=== PATIENT | female | born 1990 | race Caucasian/White ===

== ENCOUNTER → 2016-12-07 11:39 | Day surgery (SDC) | payer BC, OTHER ==
[~2016-12-07 11:39] MED LIST: Acetaminophen IV 1GM/100ML * 100 ML IVPB ONE; Acetaminophen IV 1GM/100ML * 100 ML ONE; Buffered Lidocaine 1% SYR 3ML* 3 ML/SYR SYRINGE INTRADERM ONE; Bupivacaine 0.25% EPI 200,000* 30 ML SDV ONE; Dexamethasone IV* 4 MG/ML 1 ML (4 MG) ONE; DiMENhydriNATE IV* 50 MG/ML VIAL IV PUSH PRN; DiMENhydriNATE IV* 50 MG/ML VIAL ONE; Famotidine IV* 10 MG/ML 2 ML (20 mg) IV ONE; Famotidine IV* 10 MG/ML 2 ML (20 mg) ONE; HYDROmorphone INJ* 1 MG/ML CARPUJECT SYRINGE IV PRN; HYDROmorphone INJ* 1 MG/ML CARPUJECT SYRINGE ONE; Heparin VIAL(*) 5000 UNITS/ML VIAL (FIVE THOUSAND) ONE; Ketorolac INJ* 30 MG/ML 1 ML VIAL ONE; Lidocaine 2% PF * 5 ML VIAL ONE; Midazolam* 1 MG/ML 5 ML VIAL (5 MG) ONE; Ondansetron INJ* 2 MG/ML VIAL ONE; Propofol* 10 MG/ML 20 ML BTL IV PUSH ONE; Rocuronium* 10 MG/ML VIAL ONE; Scopolamine 1.5 mg* PATCH ONE; Succinylcholine* 20 MG/ML 10 ML VIAL ONE; ceFAZolin 2 GM PREMIX (*) 2 GM/50 ML BAG IVPB ONE; fentaNYL* 50 MCG/ML 2 ML VIAL (100 MCG VIAL) ONE; oxyCODONE TAB* 5 MG TAB PO PRN
[2016-12-07 12:16] LABS: Manual Entry Verification DOM0004; UR Preg Internal Control QC Line Present
[2016-12-07 17:03] VITALS: BP 126/65
--- NOTE | 2016-12-08 03:16 | OP ---
DATE OF OPERATION: 12/07/16 - [facility] DATE OF : 88 SURGEON: Reginaldo Pastrana MD ROCK SPLITTER: Rissa Lucio NP ANESTHESIOLOGIST: Jovita Dailey MD ANESTHESIA: General anesthetic, local infiltration. PRE-OP DIAGNOSIS: Biliary colic. POST-OP DIAGNOSIS: Biliary colic. OPERATIVE PROCEDURE: Laparoscopic cholecystectomy. DESCRIPTION OF PROCEDURE: The patient was supine on the operative table. After adequate general anesthetic, compression stockings, Joss Hugger warmer, and intravenous antibiotics, the abdomen was prepped with antiseptic, draped in a sterile fashion. Local infiltrative anesthesia was administered first in the right upper quadrant and then a 5-mm blunt port cannula was placed. Insufflation was carried out with carbon dioxide and inspection reveals no evidence of injury. Additional cannulae, 5 mm supraumbilical and right anterior axillary line and 12 mm subxiphoid, were placed through small stab wounds under direct vision. The gallbladder was tented upward. Areola tissue was taken down off the cystic duct and cystic artery, which were readily identified, clipped, and divided. The common duct was also identified and kept out of harm' s way. Visualization was very good. The gallbladder was taken off the liver bed in the usual fashion. Hemostasis was obtained using electrocautery. The operative site was irrigated with warm saline solution. Free fluid was suctioned out. Hemostasis was again confirmed. The cannulae removed and skin closed with 5-0 Polysorb followed by Steri-Strips. Gallbladder was sent in formalin for pathologic evaluation. There were no complications. No drains. Estimated blood loss 20 mL. The patient was brought to Recovery in good condition. CC: Dr. Reginaldo Pastrana; Dr. Luther Mirza* [id number]/[facility] #: [id number] MTDD
== END | disposition home or self-care (01) ==
LOC: OR 11:39
PROVIDERS: ATTEND Surgery
DX: K80.10 Calculus of gallbladder with chronic cholecystitis without obstruction (principal); E66.9 Obesity, unspecified; Z68.39 Body mass index [BMI] 39.0-39.9, adult
CPT/HCPCS: 81025; 88304; A9270-GY; J0330; J0690; J1100; J1170; J1240; J1644; J1885; J2250; J2405; J2704; J3010

== ENCOUNTER 2017-10-23 04:40 | Inpatient (IN) | payer MEDICAID ==
[2017-10-23] MEDS ORDERED: ceFOXitin 2 GM IVPREMIX* 2 GM/50 ML BAG IVPB ONE (07:26)
[2017-10-23] MEDS ORDERED: ceFOXitin 2 GM IVPREMIX* 2 GM/50 ML BAG ONE (07:40)
[2017-10-23] MEDS ORDERED: Sodium Citrate/Citric Acid* 15 ML UDC ONE (07:40)
[2017-10-23] MEDS ORDERED: Morphine PF AMP (0.5MG/ML)* 5 MG/10 ML AMP ONE (08:05)
[2017-10-23] MEDS ORDERED: OXYTOCIN* 10 UNITS/ML 1 ML VIAL ONE (08:31)
[2017-10-23] MEDS ORDERED: EPHEDrine (Pressors)* 50 MG/ML VIAL ONE (08:31)
[2017-10-23] MEDS ORDERED: Ondansetron INJ* 2 MG/ML VIAL ONE (08:31)
[2017-10-23] MEDS ORDERED: Ketorolac INJ* 30 MG/ML 1 ML VIAL ONE (08:31)
[2017-10-23] MEDS ORDERED: Acetaminophen IV 1GM/100ML * 1,000 MG/100 ML VIAL IVPB ONE (08:44)
[2017-10-23] MEDS ORDERED: Naloxone* 0.4 MG/ML 1 ML VIAL IV PRN ×2 (08:44→08:46)
[2017-10-23] MEDS ORDERED: DiMENhydriNATE IV* 50 MG/ML VIAL IV PUSH PRN (08:44)
[2017-10-23] MEDS ORDERED: oxyCODONE TAB* 5 MG TAB PO PRN (08:44)
[2017-10-23] MEDS ORDERED: HYDROmorphone INJ* 1 MG/ML CARPUJECT SYRINGE IV PRN (08:44)
[2017-10-23] MEDS ORDERED: Ondansetron INJ* 2 MG/ML VIAL IV PRN (08:46)
[2017-10-23] MEDS ORDERED: Nalbuphine* 20 MG/ML 1 ML VIAL IV PRN (08:46)
[2017-10-23] MEDS ORDERED: oxyCODONE/Acetamin 5/325 MG* TAB PO PRN (08:46)
[2017-10-23] MEDS ORDERED: Dibucaine 1% 28.35 GM TUBE PR PRN (09:26)
[2017-10-23] MEDS ORDERED: Glycerin ADULT SUPP PR PRN (09:26)
[2017-10-23] MEDS ORDERED: Zolpidem TAB* 5 MG PO PRN (09:26)
[2017-10-23] MEDS ORDERED: Witch Hazel PAD* JAR TOPICAL PRN (09:26)
[2017-10-23] MEDS ORDERED: Acetaminophen TAB* 325 MG PO PRN (09:26)
[2017-10-23] MEDS: Ibuprofen TAB* 600 MG PO SCH ×3 (12:59→21:14)
[2017-10-23] MEDS: Simethicone TAB* 80 MG TAB.CHEW PO SCH ×3 (15:08→21:14)
[2017-10-23] MEDS: Docusate CAP* 100 MG PO SCH ×2 (15:08→21:14)
[2017-10-23] MEDS: FLUoxetine CAP* 20 MG PO SCH (18:35)
[2017-10-24] MEDS ORDERED: oxyCODONE/Acetamin 5/325 MG* TAB PO PRN ×2 (00:11)
[2017-10-24] MEDS: Ibuprofen TAB* 600 MG PO PRN ×3 (03:24→14:56)
[2017-10-24 07:12] LABS: ABS Basophils 0 10^3/ul (0-0.2); ABS Eosinophils 0.2 10^3/ul (0-0.6); ABS Lymphocytes 1.8 10^3/ul (1.0-4.8); ABS Monocytes 0.8 10^3/ul (0-0.8); ABS Neutrophils 10.7 10^3/ul (1.5-7.7); ABS Nucleated RBC 0 10^3/ul; Eosinophil % 1.1 % (0-6); Hematocrit 33 % (35-47); Hemoglobin 11.4 g/dl (12.0-16.0); Lymphocyte % 13.2 % (25-47); Mean Corpuscular HGB Conc 34 g/dl (31-36); Mean Corpuscular Hemoglobin 29 pg (27-31); Mean Corpuscular Volume 86 fL (80-97); Mean Platelet Volume 10 um3 (7.4-10.4); Nucleated Red Blood Cells % 0; Platelet Count 160 10^3/ul (150-450); Red Blood Count 3.88 10^6/ul (4.0-5.4); Red Cell Distribution Width 13 % (10.5-15); White Blood Count 13.4 10^3/ul (3.5-10.8)
[2017-10-24 08:18] VITALS: BP 99/47
[2017-10-24] MEDS: Docusate CAP* 100 MG PO SCH ×2 (08:22→14:56)
[2017-10-24] MEDS: Simethicone TAB* 80 MG TAB.CHEW PO SCH ×3 (08:22→17:47)
[2017-10-24] MEDS ORDERED: Ferrous Gluconate TAB* 324 MG TAB PO SCH (09:00)
[2017-10-24] MEDS: FLUoxetine CAP* 20 MG PO SCH (17:47)
--- NOTE | 2017-10-24 23:38 | OP ---
CC: Oscar Dominguez MD, [facility] * DATE OF OPERATION: 10/23/17 - ROOM #[id number]-117 DATE OF : 88 SURGEON: Breezy Bermeo MD. CERTIFIED ENERGY MANAGER: Oscar Dominguez MD ANESTHESIA: Spinal. PRE-OP DIAGNOSIS: at 39 weeks with a prior section. POST-OP DIAGNOSIS: at 39 weeks with a prior section. OPERATIVE PROCEDURE: Repeat low transverse section. ESTIMATED BLOOD LOSS: 600 cc. SPECIMENS SENT TO PATHOLOGY: Cord blood. FLUIDS: She received 2 L of IV crystalloid fluid. URINE OUTPUT: Clear. FINDINGS: Delivery of a viable female infant, with a weight of 6 pounds 14 ounces with Apgars of 9 and 9, over clear fluid. The placenta was grossly intact with a 3- vessel cord noted. The uterus, bowel, bladder and adnexa were all within normal limits. DESCRIPTION OF PROCEDURE: The patient was taken to the operating room where she was identified. She was placed on the operating table where a spinal anesthetic was obtained without difficulty. She was then placed in the supine position with a leftward tilt, prepped and draped in a normal sterile fashion. A Pfannenstiel skin incision was made with a knife and carried through the underlying layer of fascia. The fascia was then nicked in the midline and extended laterally with curved Gallego scissors. The fascia was grasped superiorly and inferiorly with Zahra clamps and dissected off sharply from the rectus muscle. The rectus muscle was in the midline bluntly. The peritoneum was identified, grasped with pickups, entered sharply with Metzenbaum scissors, and extended superiorly and inferiorly sharply. A bladder blade was inserted into the patient's abdomen and a bladder flap was created using Metzenbaum scissors over which a bladder blade was then reinserted. A low transverse incision was made with a knife and extended laterally with bandage scissors. Amniotic sac was ruptured. The infant's head was grasped and delivered atraumatically. The rest of the infant's body was then delivered. The cord was clamped and cut and the infant was handed off to awaiting rail layer. Cord bloods were obtained. The placenta was then removed manually. The uterus was then exteriorized, cleared of all clot and debris using moist laparotomy sponges. The uterine incision was closed using 0 Polysorb suture in a running locked fashion with a second imbricating layer of 0 Polysorb suture with good hemostasis noted at the uterine incision. The uterus was then returned to the patient's abdomen. The gutters were then cleared of all clot and debris using moist laparotomy sponges and normal saline irrigation fluid. All the fluid from the patient's abdomen was suctioned. At this point, all the instruments were removed from the patient's abdomen. The peritoneum was then closed using 3-0 Polysorb suture in a running fashion. The fascia was closed using 0 Polysorb suture in a running fashion. The Koby's fascia was closed using 3-0 Polysorb suture in an interrupted fashion and the skin was closed with 4-0 Monocryl subcuticular stitch. The patient tolerated the procedure well. Sponge, lap, and needle counts were correct x2. The patient was then transferred to recovery room area in stable condition. [id number]/[facility] #: [id number] MTDD
== END 2017-10-24 18:35 | disposition home or self-care (01) | DRG 540 ==
LOC: MCHOB 05:59
PROVIDERS: ADMIT Obstetrics & Gynecology; ATTEND Obstetrics & Gynecology
PROC: 10D00Z1 Extraction of Products of Conception, Low, Open Approach (ICD-10-PCS; principal; 2017-10-23 07:45)
DX: O34.211 Maternal care for low transverse scar from previous cesarean delivery (principal); E66.01 Morbid (severe) obesity due to excess calories; O99.214 Obesity complicating childbirth; Z68.39 Body mass index [BMI] 39.0-39.9, adult; Z3A.39 39 weeks gestation of pregnancy; Z37.0 Single live birth
CPT/HCPCS: 36415; 85025; A9270-GY; J0694; J1885; J2405; J2590

== ENCOUNTER 2017-10-28 09:24 | Emergency (ER) | payer MEDICAID ==
--- NOTE | 2017-10-28 11:03 | ED ---
Throat Pain/Nasal Congestion - HPI Summary HPI Summary: Patient is a 27-year-old otherwise healthy female who presents 4 days postop section to the ED with left sided facial swelling, numbness and pain. She denies fever, sweats, chills. She has never had anything like this before. She is able to move about the jaw and denies any visual changes or difficulty opening or closing the eye. She denies any problems with the or the incision. She is currently breast-feeding. She was able to call her neurologist Dr. Briseno this morning who suggested she come to the ED for an evaluation. She states he swelling and pain came on abruptly 2 days ago and feels like it's slightly getting worse. Denies any redness over the area, but endorses warmth. Denies any oral or dental lesions. Swallowing, eating and drinking okay. She feels otherwise healthy. History of trigeminal neuralgia on the right side. - History of Current Complaint Chief Complaint: EDFacialInjury Time Seen by Provider: 10/28/17 09:34 Hx Obtained From: Patient Onset/Duration: Gradual Onset Severity: Moderate Associated Signs And Symptoms: Negative: Dysphagia, Drooling, Wheezing, Hoarseness, Sinus Discomfort, Nasal Discharge - Epiglottits Risk Factors Epiglottis Risk Factors: Negative - Allergies/Home Medications Allergies/Adverse Reactions: Allergies Allergy/AdvReac Type Severity Reaction Status Date / Time Pet Dander Allergy Intermediate Congestion Uncoded 10/28/17 09:29 PMH/Surg Hx/FS Hx/Imm Hx Previously Healthy: Yes Endocrine/Hematology History: Reports: Hx Anemia - low iron Denies: Hx Diabetes, Hx Thyroid Disease Cardiovascular History: Denies: Hx Hypertension, Hx Pacemaker/ICD, Other Cardiovascular Problems/ Disorders Respiratory History: Denies: Hx Asthma, Hx Chronic Obstructive Pulmonary Disease (COPD), Other Respiratory Problems/Disorders GI History: Reports: Hx Gall Bladder Disease Denies: Hx Ulcer, Other GI Disorders Musculoskeletal History: Denies: Other Musculoskeletal History Sensory History: Reports: Hx Contacts or Glasses - glasses Denies: Hx Hearing Aid Opthamlomology History: Reports: Hx Contacts or Glasses - glasses Neurological History: Reports: Hx Migraine - DAILY, fall for 2 months, Hx Nerve Disease - possible neuralgia Psychiatric History: Reports: Hx Anxiety - ON MEDS, Hx Depression - HX, Hx Panic Disorder - given options - Surgical History Surgery Procedure, Year, and Place: ; wisdom tooth extraction Hx Anesthesia Reactions: No - Immunization History Hx Pertussis Vaccination: No Immunizations Up to Date: Unable to Obtain/Confirm Infectious Disease History: No Infectious Disease History: Reports: Hx Shingles Denies: Hx Hepatitis, Hx Human Immunodeficiency Virus (HIV), Hx of Known/ Suspected MRSA, Hx Tuberculosis, Hx Known/Suspected VRE, Hx Known/Suspected VRSA , History Other Infectious Disease, Traveled Outside the [place] in Last 30 Days - Family History Known Family History: Positive: Hypertension, Other - gallbladder disease Negative: Cardiac Disease, Diabetes - Social History Occupation: Employed Full-time Lives: With Family Alcohol Use: None Alcohol Amount: 2 per week Hx Substance Use: No Substance Use Type: Reports: None Hx Tobacco Use: No Smoking Status (MU): Never Smoked Tobacco Have You Smoked in the Last Year: No Review of Systems Constitutional: Negative Negative: Fever, Chills, Fatigue Eyes: Negative Cardiovascular: Negative Gastrointestinal: Negative Negative: Abdominal Pain, Vomiting, Diarrhea, Nausea Genitourinary: Negative Positive: no symptoms reported, see HPI Positive: Other - erythema and warmth to the left cheek Neurological: Negative Psychological: Normal All Other Systems Reviewed And Are Negative: Yes Physical Exam Triage Information Reviewed: Yes Vital Signs On Initial Exam: Initial Vitals Temp Pulse Resp BP Pulse Ox 97.5 F 65 16 147/87 99 10/28/17 09:29 10/28/17 09:29 10/28/17 09:29 10/28/17 09:29 10/28/17 09:29 Vital Signs Reviewed: Yes Appearance: Positive: Well-Appearing, Well-Nourished Skin: Positive: Warm, Skin Color Reflects Adequate Perfusion, Other - Erythema and warmth, tenderness to the touch to the left cheek Head/Face: Positive: Normal Head/Face Inspection Eyes: Positive: EOMI, ALCIDES, Conjunctiva Clear ENT: Positive: Sinus tenderness - Left maxillary sinus without involvement of the frontal sinuses Dental: Positive: Cervical Lymphadenopathy - Bilateral tender lymphadenopathy Neck: Positive: Supple, No Lymphadenopathy Respiratory/Lung Sounds: Positive: Clear to Auscultation, Breath Sounds Present Cardiovascular: Positive: RRR, Pulses are Symmetrical in both Upper and Lower Extremities Musculoskeletal: Positive: Strength/ROM Intact Neurological: Positive: Speech Normal Psychiatric: Positive: Normal, Affect/Mood Appropriate Diagnostics - Vital Signs Vital Signs Temp Pulse Resp BP Pulse Ox 10/28/17 09:29 97.5 F 65 16 147/87 99 - Laboratory Result Diagrams: 10/28/17 11:20 10/28/17 11:20 Lab Statement: Any lab studies that have been ordered have been reviewed, and results considered in the medical decision making process. EENT Course/Dx - Course Course Of Treatment: During the course of treatment, patient is evaluated for left maxillary sinus pressure, pain, redness, swelling versus trigeminal neuralgia, versus other pathology. She was able to call neurology this morning who agrees to come see the patient in the ED. History of trigeminal neuralgia, although on the right side. She is 4 days status post section and denies any fevers, sweats, chills or pain to the incision site. She denies history of sinus infections or pain in the maxillary sinus. No orbital or periorbital erythema or visual changes to suggest orbital cellulitis. She has been otherwise feeling well. Dr. Mauricio to see patient and agrees CT maxillofacial with contrast study of choice to rule out abscess versus cellulitis versus sinusitis. Discussed at length with patient the benefits and risks to both her and baby with CT and IV contrast. She is visibly upset, but provider has encouraged the contrast is necessary. I have called Dr. Nunez ( radiology) who agrees contrast is the better study of choice. Up-to-date shows 24 hours is sufficient for abstaining from breast-feeding to decrease the relative infant dose of the contrast. Patient is given breast pump. She is okay with plan to continue CT maxillofacial. Results show findings of chronic left maxillary antral sinusitis. No acute air-fluid level. No evidence of abscess formation. Mildly prominent lymph nodes in the visualized neck. Discussed results with patient. While it is unusual that she is having only left sided sinusitis with no history, based on physical exam and CT results will treat for uncomplicated sinusitis. Likely due to immunocompromised state. According to up-to-date, Augmentin is treatment of choice in breast-feeding females. 500 mg 3 times a day 7 days. She is encouraged to breast feed prior to taking the dose. Information on relative dosing and excretion of the medication, risks and side effects to both mother and baby is given to the patient. She agrees with plan and discharged and will follow-up with ENT for any worsening symptoms. Referral is given. Ibuprofen 600 mg given prior to discharge. Vital signs remained stable throughout course of treatment. - Differential Diagnoses Differential Diagnoses: Other - Cellulitis, abscess - Diagnoses Provider Diagnoses: Left maxillary sinusitis Discharge - Discharge Plan Condition: Stable Disposition: HOME Prescriptions: Amoxicillin/Clavulanate TAB* [Augmentin TAB 500 mg*] 500 mg PO TID #21 tab Patient Education Materials: Sinusitis (ED) Referrals: Wilson Camacho MD [Medical Doctor] - Luther Mirza MD [Primary Care Provider] - Additional Instructions: As discussed, if you develop any worsening redness, pain, swelling, or any eye involvement, he must return to the ED immediately I have given you follow-up to Dr. Ramos, ENT Please call his office tomorrow for an appointment As discussed, the CT results show U have a chronic left axillary antral sinusitis This requires antibiotics I recommend you take Augmentin 500 mg 3 times daily for 7 days Breast feed immediately before taking the Augmentin to minimize excretion into breast milk Warm soaks over the left maxillary sinus will help with discomfort May take ibuprofen or Tylenol for any discomfort
[2017-10-28 11:35] LABS: Hematocrit 34 % (35-47); Hemoglobin 11.4 g/dl (12.0-16.0); Mean Corpuscular HGB Conc 33 g/dl (31-36); Mean Corpuscular Hemoglobin 29 pg (27-31); Mean Corpuscular Volume 87 fL (80-97); Mean Platelet Volume 9 um3 (7.4-10.4); Platelet Count 236 10^3/ul (150-450); Red Blood Count 3.92 10^6/ul (4.0-5.4); Red Cell Distribution Width 13 % (10.5-15); White Blood Count 8.5 10^3/ul (3.5-10.8)
[2017-10-28 11:55] LABS: EGFR Non-African American 121.4 (>60)
[2017-10-28] MEDS ORDERED: Iohexol 300* (CONTRAST) 10 ML SDV IV ONE (11:59)
--- NOTE | 2017-10-28 12:56 | RAD ---
INDICATION: Left maxillary sinus pain COMPARISON: None TECHNIQUE: Axial source images were acquired from the vertex of the mandible through the orbits. Coronal and sagittal reconstructed images were acquired. 50 mL of Omnipaque 300 was utilized FINDINGS: Bones: There is no acute facial bone fracture. Orbits: The globes and intraconal structures appear intact. The optic nerves are symmetric. Extraocular muscles appear normal. There is no intraconal inflammatory change or retrobulbar mass.. Paranasal sinuses: There is circumferential mucosal thickening of the left maxillary antrum consistent with chronic sinusitis. Remaining paranasal sinuses are clear. There is narrowing of the left ostial complex. The nasal passageway is clear. Brain: There are no acute abnormalities of the visualized brain parenchyma. Soft tissues: Normal Other: The caudal most images show borderline enlarged lymph nodes in the submandibular space bilaterally and mildly prominent lymph nodes in the carotid spaces. The significance is uncertain. These may be reactive. Suggest nonemergent follow-up CT imaging of the neck if there is concern of lymphadenopathy The visualized soft tissue elements about the neck appear normal. IMPRESSION: FINDINGS OF CHRONIC LEFT MAXILLARY ANTRAL SINUSITIS. NO ACUTE AIR-FLUID LEVEL. NO EVIDENCE OF ABSCESS FORMATION. MILDLY PROMINENT LYMPH NODES IN THE VISUALIZED NECK
[2017-10-28 13:11] LABS: Monocytes % 3 % (0-13)
[2017-10-28] MEDS ORDERED: Ibuprofen TAB* 600 MG PO ONE (13:26)
[2017-10-28 13:46] VITALS: BP 127/68
--- NOTE | 2017-10-28 19:54 | CONS ---
CC: Edith Lambert MD; Luther Mirza MD * CONSULTATION REPORT: DATE OF CONSULT: 10/28/17 - EMERGENCY DEPT REASON FOR CONSULT: New facial pain in the setting of history of facial pain with change in facial movement, swelling. HISTORY OF PRESENT ILLNESS: Shahida Heredia is a 27-year-old woman who gave this week on Sunday per with no complications who Sunday night started noticing some asymmetry to her face. She started developing some swelling, pain in the upper maxillary area near her nose and this progressed today to the point that she felt like her face was moving differently. This occurs in the setting of a history of facial pain for which she has followed with Dr. Lambert in the past. The facial pain has changed sides and previous MRI did not show any focal findings. She had been on medication for her symptoms in the past, but had stopped these due to and now . The pain that she is experiencing now is very different than her sharp facial pain that was diagnosed as trigeminal neuralgia versus migraine pain. PAST MEDICAL HISTORY: Includes; 1. Bilateral facial pain, followed by Dr. Lambert. 2. Anxiety. 3. History of cholecystectomy in December 2016 for gallstones. 4. for twins in 2014. on Sunday. MEDICATIONS: Include; 1. Prozac 40 mg p.o. daily. 2. vitamin p.o. daily. 3. Calcium, magnesium, and zinc supplementation p.o. daily. 4. Vitamin D approximately 2000 international units p.o. daily. 5. Iron sulfate 325 mg p.o. daily. 6. Colace 100 mg 2 to 3 tablets p.o. daily. 7. Fish oil unknown dose p.o. daily. 8. Folate 4 mg p.o. daily. ALLERGIES: She has no known drug allergies. FAMILY HISTORY: At this point is noncontributory. SOCIAL HISTORY: Shahida Heredia lives with her female partner. She is . 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 She does not smoke. She has not drank alcohol during , but in the past would drink occasional wine. She denies any illicit drug use including cocaine, heroin. REVIEW OF SYSTEMS: There was no change in her vision. No double vision. No blurry vision. She could get some headache in the temporal region when ibuprofen wore off with the facial pain. She has had no loss of vision or double vision. There has been no change in hearing. No difficulty swallowing. He has a sore throat that has been chronic in the last trimester. There has no pain in her ear. She denies any fever or rash. When asked about skin condition , she states the left side of her face has been dry, but otherwise no change. There has been no chest pain or palpitations. No history of blood clots. No new numbness or weakness of arms or legs. No change in bowel or bladder habits other than improvement in bladder habits with less frequency since delivery. Psychiatric history is as mentioned above. GI history is as mentioned above. PHYSICAL EXAM: On examination, Shahida's temperature was 97.5 degrees Fahrenheit, her pulse was 65, respiratory rate was 16, saturation was 99%, and blood pressure was 147/87. She had a regular cardiac rhythm. Lungs were clear to auscultation. There was no carotid bruit. She had no rash. There was; however, swelling of her left face in the maxillary region on the medial aspect of the zygomatic process with warmth in that area compared to the contralateral side and tenderness to palpation. Her pupils were equal and responsive to light. Her fundi were flat. She had full extraocular movements with no nystagmus, full [place] to confrontation. Her facial expression was symmetric with activation of smile, movement of mouth in different directions, closing of eyes, movement of forehead, but at baseline where the swelling looked asymmetrical without movement. Her facial sensation was equal to pinprick, cold to light touch. Palate was upgoing. Tongue was midline. Sternocleidomastoid and trapezius were 5/5 in strength. There was normal bulk and tone. No pronator drift. Full strength in the upper and lower extremities with normal [id number] and mwal-na-kgce movements. Vibration sensation was decreased by 5 seconds at the large toes. Proprioception was intact. There was no asymmetry to pinprick, cold or light touch. She had normal finger-to- nose and heel- to-william movements. Her reflexes were 2+ and symmetric in the upper and lower extremities with flexor response of toes. Her Romberg was negative. DIAGNOSTIC STUDIES/LAB DATA: Data so far includes white count 8.5, hemoglobin and hematocrit are 11.4 and 34, and platelets 236,000. Differential is pending. These are the only laboratory tests back thus far. CT maxillofacial with contrast is ordered. IMPRESSION: Shahida Heredia is a 27-year-old woman with history of bilateral facial pain, which could fluctuate from one side to the other with differential diagnosis of trigeminal neuralgia versus migrainous symptoms, now with 5 days , having a new type of left facial pain associated with focal swelling , warmth, and tenderness suggesting infection. There are no new focal findings on examination to suggest a new brainstem lesion in the . Therefore, I have not suggested MRI imaging at this time. Further workup is being provided by the emergency room for cause of the focal swelling and tenderness and possible infection. Education was provided. All questions were answered. TIME SPENT: One hour was spent in direct patient care. [id number]/[facility] #: [id number] NATANAEL
== END 2017-10-28 13:45 | disposition home or self-care (01) ==
LOC: ED 09:24
DX: J32.0 Chronic maxillary sinusitis (principal); F41.9 Anxiety disorder, unspecified; F32.9 Major depressive disorder, single episode, unspecified; D50.9 Iron deficiency anemia, unspecified
CPT/HCPCS: 36415; 70487; 80053; 83605; 83690; 85025; 85060; 86140; 96374; 99282; A9270-GY; Q9967

== ENCOUNTER 2020-09-13 05:52 | Inpatient (IN) ==
[2020-09-13] MEDS ORDERED: Lactated Ringers 1000 ml BAG 1,000 ML IV SCH (06:00)
[2020-09-13] MEDS ORDERED: Dexamethasone IV 4 MG/ML VIAL 1 ml VIAL IV SLOW PU ONE (06:00)
[2020-09-13] MEDS ORDERED: Buffered Lidocaine 1% SYRIN 1 ml INTRADERM ONE ×2 (06:00→06:34)
[2020-09-13] MEDS ORDERED: Heparin 5000 UNITS/ML 1 mL VIAL ONE (06:33)
[2020-09-13] MEDS ORDERED: Dexamethasone IV 4 MG/ML VIAL 1 ml VIAL ONE (06:33)
[2020-09-13] MEDS ORDERED: ceFAZolin 2 GM PREMIX 2 GM/50 ML BAG ONE (06:33)
[2020-09-13] MEDS ORDERED: ceFAZolin 1 GM ADVAN 1 GM ADDV.VIAL IVPB ONE (06:34)
[2020-09-13] MEDS ORDERED: Methylene Blue 0.5 % 50 MG/10 ML AMP IV ONE (06:59)
[2020-09-13] MEDS ORDERED: Bupivacaine 0.5% SDV PF 30ML VIAL ONE (07:00)
[2020-09-13] MEDS ORDERED: Midazolam 2 mg/2 ml VIAL 1 mg/ml 2 ml VIAL (2 mg) ONE (07:19)
[2020-09-13] MEDS ORDERED: Propofol 10 MG/ML 20 ML BTL ONE (07:19)
[2020-09-13] MEDS ORDERED: Rocuronium 50 mg VIAL 10 mg/ml 5 ml VIAL (50 mg) ONE ×2 (07:19→08:16)
[2020-09-13] MEDS ORDERED: fentaNYL 250 mcg/5 ml 50 MCG/ML 5 ml VIAL (250 MCG) ONE (07:19)
[2020-09-13] MEDS ORDERED: HYDROmorphone 1 MG/1 ML SYRINGE ONE ×2 (08:08→11:20)
[2020-09-13] MEDS ORDERED: Naloxone 0.4 mg VIAL 0.4 mg/ml 1 ml VIAL IV PRN (08:18)
[2020-09-13] MEDS ORDERED: Ondansetron 4 mg VIAL 2 MG/ML 2 ml VIAL IV PRN ×2 (08:18→11:07)
[2020-09-13] MEDS ORDERED: Ondansetron 4 mg VIAL 2 MG/ML 2 ml VIAL ONE ×2 (09:25→11:04)
[2020-09-13] MEDS ORDERED: fentaNYL 100 mcg/2 ml 50 MCG/ML VIAL ONE (11:04)
[2020-09-13] MEDS ORDERED: HYDROcodone/ACET. 7.5/325 LIQ 15 ML UDC PO PRN (11:07)
[2020-09-13] MEDS ORDERED: HYDROmorphone 0.5 MG/0.5 ML SYRINGE IV SLOW PU PRN (11:07)
[2020-09-13] MEDS ORDERED: HYDROmorphone 1 MG/1 ML SYRINGE IV SLOW PU PRN (11:07)
[2020-09-13] MEDS ORDERED: diPHENhydraMINE IV 50 MG/ML 1 ml VIAL (BENADRYL) SLOW PUSH PRN (11:07)
[2020-09-13] MEDS: fentaNYL 100 mcg/2 ml 50 MCG/ML VIAL IV PRN ×4 (11:07→11:24)
[2020-09-13] MEDS: HYDROmorphone 1 MG/1 ML SYRINGE IV PRN ×3 (11:21→11:42)
[2020-09-13] MEDS: Lactated Ringers 1000 ml BAG 1,000 ML IV SCH ×2 (12:13→18:56)
[2020-09-13] MEDS: Heparin 5000 UNITS/ML 1 mL VIAL SUBCUT SCH ×2 (14:17→23:10)
[2020-09-13] MEDS: Famotidine IV 10 MG/ML 2 ml VIAL (20 mg) IV SLOW PU SCH (20:51)
[2020-09-14] MEDS: Lactated Ringers 1000 ml BAG 1,000 ML IV SCH (02:24)
[2020-09-14] MEDS: Heparin 5000 UNITS/ML 1 mL VIAL SUBCUT SCH ×2 (06:16→14:30)
[2020-09-14] MEDS: Famotidine IV 10 MG/ML 2 ml VIAL (20 mg) IV SLOW PU SCH (11:40)
[2020-09-14] MEDS ORDERED: D5W 1/2 NS KCl 20 meq 1000 ml 1,000 ML IV SCH (12:00)
[2020-09-14 16:54] VITALS: BP 124/83
[2020-09-16] MEDS ORDERED: Scopolamine PATCH Remove NOTE PATCH OFF ONE (06:00)
== END 2020-09-14 17:05 | disposition home or self-care (01) | DRG 403 ==
LOC: AA 05:52 → SSU 12:01
PROVIDERS: ADMIT Surgery; ATTEND Surgery